=== PATIENT | male | born 1975 ===

== ENCOUNTER 2017-05-23 18:29 | Emergency (ER) | payer OTHER ==
[2017-05-23 18:39] VITALS: BP 200/95; PULSE 104; RESP 18; TEMP 97.9; O2SAT 99
[2017-05-23] MEDS ORDERED: Acetaminophen-Codeine 300/30 mg Tab PO ONE (18:44)
--- NOTE | 2017-05-23 18:46 | ED PDOC ---
HPI: CCC, URI, Sore Throat Time Seen by Provider: 05/23/17 18:43 Chief Complaint (Nursing): ENT Problem Chief Complaint (Provider): ear pain History Per: Patient History/Exam Limitations: no limitations Location Of Pain: Ear(s) Associated Symptoms: denies: Fever, Chills, Sore Throat, Cough, Sputum, Neck Pain, Sinus Drainage, Myalgias, Nasal Congestion, Nausea, Vomiting, Diarrhea Ear Symptoms: Left: None, Right: Ear Pain, Ear Fullness, Decreased Hearing, Ear Swelling, Ear Drainage Past Medical History Reviewed: Historical Data, Nursing Documentation, Vital Signs Vital Signs: Last Vital Signs Temp 97.9 F 05/23/17 18:35 Pulse 104 H 05/23/17 18:35 Resp 18 05/23/17 18:35 BP 200/95 H 05/23/17 18:35 Pulse Ox 99 05/23/17 18:35 - Medical History PMH: Diabetes, HTN - Family History Family History: States: Unknown Family Hx - Home Medications Home Medications: Ambulatory Orders Medication Instructions Recorded Amoxicillin [Amoxil 500 mg Cap] 500 mg PO BID #14 cap 05/23/17 - Allergies Allergies/Adverse Reactions: Allergies Allergy/AdvReac Type Severity Reaction Status Date / Time No Known Allergies Allergy Verified 04/21/17 16:54 Review of Systems ROS Statement: Except As Marked, All Systems Reviewed And Found Negative Constitutional: Negative for: Fever, Chills ENT: Positive for: Ear Pain Physical Exam - Reviewed Nursing Documentation Reviewed: Yes Vital Signs Reviewed: Yes - Physical Exam Appears: Positive for: Non-toxic, No Acute Distress, Uncomfortable Head Exam: Positive for: ATRAUMATIC, NORMAL INSPECTION, NORMOCEPHALIC Skin: Positive for: Normal Color, Warm, DRY ENT: Positive for: TM Is/Are (right: TM-disharge noted, scelerosing noted reddness and bulging noted to TM. tender speclum exam. no mastoid tenderness). Negative for: Nasal Congestion, Pharyngeal Erythema, Tonsillar Exudate, Tonsillar Swelling Neurologic/Psych: Positive for: Alert, Oriented - ECG O2 Sat by Pulse Oximetry: 99 Medical Decision Making Medical Decision Making: dX: OM in ED T#3 and d/c with Rx for amoxicillin f/u with ENT stable VS Disposition - Clinical Impression Clinical Impression: Otitis media - Patient ED Disposition Is Patient to be Admitted: No Counseled Patient/Family Regarding: Studies Performed, Diagnosis, Need For Followup, Rx Given - Disposition Disposition: Routine/Home Disposition Time: 18:50 Condition: STABLE Prescriptions: Amoxicillin [Amoxil 500 mg Cap] 500 mg PO BID #14 cap Instructions: Otitis Media (ED)
== END 2017-05-23 19:10 | disposition home or self-care (01) ==
LOC: H.ER 18:29
DX: H66.91 Otitis media, unspecified, right ear (principal)